=== PATIENT | female | born 1980 | race Caucasian/White ===

== ENCOUNTER 2017-10-15 19:04 | Emergency (ER) | payer OTHER ==
[2017-10-15 19:09] VITALS: BP 127/86; PULSE 68; TEMP 98; BMI 25.0
--- NOTE | 2017-10-15 19:09 | PDOC ---
Rapid Medical Evaluation Time Seen by Provider: 10/15/17 19:07 Medical Evaluation: Allergies Allergy/AdvReac Type Severity Reaction Status Date / Time No Known Allergies Allergy Verified 03/31/14 13:40 10/15/17 19:07 Pt c/o: fell and landed on rt knee Pt on brief exam: ecchymosis and edema t right patella Pt ordered for: none ? contusion Pt to proceed to the ED Discharge Disposition - Diagnosis Knee pain, right - Referrals - Patient Instructions - Post Discharge Activity
--- NOTE | 2017-10-15 20:21 | PDOC ---
History of Present Illness - General Chief Complaint: Injury Stated Complaint: RT KNEE INJURY Time Seen by Provider: 10/15/17 19:07 - History of Present Illness Initial Comments: 37-year-old female without comorbidities presents for evaluation of right knee pain after a fall today. She had a mechanical fall where she lost her balance and fell directly onto the anterior aspect of her right knee. She planes of localized pain no other associated symptoms. 10/15/17 20:18 Past History - Past Medical History Allergies/Adverse Reactions: Allergies Allergy/AdvReac Type Severity Reaction Status Date / Time No Known Allergies Allergy Verified 10/15/17 19:09 Home Medications: Ambulatory Orders NK [No Known Home Medication] 10/15/17 COPD: No - Suicide/Smoking/Psychosocial Hx Smoking History: Never smoked Review of Systems - Review of Systems Musculoskeletal: Yes: Joint Pain All Other Systems: Reviewed and Negative *Physical Exam - Vital Signs Last Vital Signs Temp Pulse Resp BP Pulse Ox 98 F 68 18 127/86 100 10/15/17 19:05 10/15/17 19:05 10/15/17 19:05 10/15/17 19:05 10/15/17 19:05 - Physical Exam Comments: There is a superficial abrasion on the anterior aspect of the right knee. There is mild surrounding purplish ecchymosis. Mild swelling. There is no appreciable intra-articular effusion. Extensor mechanism is intact, range of motion 0 to the 100 with pain and discomfort at the anterior aspect in the at terminal flexion. There is no evidence of instability or patella femoral apprehension. Negative straight leg raise test normal hip and ankle range of motion thighs and calves are soft and nontender she is neurovascularly intact. Left knee examination is normal. 10/15/17 20:18 ED Treatment Course - RADIOLOGY Radiology Studies Ordered: Category Date Time Status KNEE 3 POS-RIGHT [RAD] Stat Radiology 10/15/17 20:05 Ordered Medical Decision Making - Medical Decision Making Normal x-ray of the left knee is a contusion weight-bear as tolerated with orthopedic surgery for further evaluation and treatment options 10/15/17 20:19 *DC/Admit/Observation/Transfer Diagnosis at time of Disposition: Knee pain, right, Contusion of knee, right - Discharge Dispostion Disposition: HOME Condition at time of disposition: Stable Decision to Admit order: No - Referrals Referrals: Maricarmen Dial [Primary Care Provider] - Kevyn Thompson MD [Staff Physician] - - Patient Instructions Printed Discharge Instructions: Contusion Additional Instructions: Turned to the emergency room should symptoms worsen or go unresolved. Follow-up with orthopedic surgery in 2-3 days for further evaluation and treatment options. He may take Tylenol and Motrin as directed for pain and swelling. I should knee for 20 minutes at a time 5-6 times a day. Keep the knee elevated. As tolerated with use of crutches. If you can walk normally you do not require crutches - Post Discharge Activity
== END 2017-10-15 21:02 | disposition home or self-care (01) ==
LOC: JERFT 19:04
DX: S80.01XA Contusion of right knee, initial encounter (principal); W18.39XA Other fall on same level, initial encounter; Y93.89 Activity, other specified; Y92.89 Other specified places as the place of occurrence of the external cause; Y99.8 Other external cause status
CPT/HCPCS: 73562-TC-RT-FY; 99281-25

== ENCOUNTER 2017-11-27 22:10 | Emergency (ER) | payer OTHER ==
[2017-11-27 22:21] VITALS: BP 141/82; PULSE 88; TEMP 98.2; BMI 24.1
--- NOTE | 2017-11-27 23:30 | PDOC ---
Attending Attestation - HPI HPI: 11/27/17 23:53 The patient is a 37 year old male, with no significant past medical history, who presents to the emergency department with headache since this morning and chest pain for about an hour today. She reports her headache is posterior and radiates to neck which has been similar in character to other headaches, however , more severe today with gradual onset. She reports her chest pain is parasternal with sudden onset while resting at home. She states she did not take any OTC medication for her symptoms. The patient denies shortness of breath and dizziness. The patient denies fever, chills, nausea, vomit, diarrhea and constipation. The patient denies dysuria, frequency, urgency and hematuria. Allergies: NKDA Past surgical history: none reported Family history: 3 uncles cardiac demise (youngest at age 47) - Physicial Exam PE: 11/27/17 23:54 GENERAL: Awake, alert, and fully oriented, in no acute distress HEAD: No signs of trauma EYES: PERRLA, EOMI, sclera anicteric, conjunctiva clear ENT: Auricles normal inspection, hearing grossly normal, nares patent, oropharynx clear without exudates. Moist mucosa NECK: Normal ROM, supple, no lymphadenopathy, JVD, or masses LUNGS: Breath sounds equal, clear to auscultation bilaterally. No wheezes, and no crackles HEART: Regular rate and rhythm, normal S1 and S2, no murmurs, rubs or gallops ABDOMEN: Soft, nontender, normoactive bowel sounds. No guarding, no rebound. No masses EXTREMITIES: Normal range of motion, no edema. No clubbing or cyanosis. No cords, erythema, or tenderness NEUROLOGICAL: Cranial nerves II through XII grossly intact. Normal speech, normal gait SKIN: Warm, Dry, normal turgor, no rashes or lesions noted. - Medical Decision Making 11/27/17 23:54 Documentation prepared by Maria Kyle, acting as medical assisting instructor for Gerri Wright MD
[2017-11-28] MEDS ORDERED: IBUPROFEN 400 MG TABLET (FP) PO ONE ×2 (01:12→03:36)
[2017-11-28] MEDS ORDERED: ACETAMINOPHEN 325 MG TABLET (FP) PO ONE (01:13)
[2017-11-28] MEDS ORDERED: ACETAMINOPHEN 325 MG TABLET (FP) ONE (01:34)
[2017-11-28 01:42] LABS: BASO % 0.3 % (0-2.0); EOS % 1.9 % (0-4.5); HEMATOCRIT 40.6 % (32.4-45.2); HEMOGLOBIN 14.2 GM/dL (10.7-15.3); LYMPH % 27.8 % (8-40); MCH 31.8 pg (25.7-33.7); MEAN CELL VOLUME 90.9 fl (80-96); MEAN PLT VOLUME 8.8 fl (7.5-11.1); MONO % 7.3 % (3.8-10.2); NEUT % 62.7 % (42.8-82.8); PLATELET COUNT 251 K/MM3 (134-434); RBC 4.46 M/mm3 (3.60-5.2); RDW 12.5 % (11.6-15.6); WHITE BLOOD COUNT 9.7 K/mm3 (4.0-10.0)
--- NOTE | 2017-11-28 02:15 | PDOC ---
History of Present Illness - General Chief Complaint: Pain Stated Complaint: CHEST PAIN Time Seen by Provider: 11/27/17 23:07 History Source: Patient Exam Limitations: No Limitations - History of Present Illness Initial Comments: 11/28/17 02:03 37 yo female no significant pmh presents to the ED with a headache that started this morning and CP that started 1 hour before arrival to the ED. Pt states she has had a hx of minor ERWIN that are of similar quality but the intensity has gradually worsened throughout the day but denies using tylenol or motrin which has helped in the past. The CP started while relaxing at home, non exertional and is located parasternally at the level of the 5th rib without radiation to the arm or back and described as sharp. Pain is made worse with palpation to affected area. Pt denies hx of smoking but states 3 uncles have passed due to heart conditions, youngest was in his 40s. Pt went to [facility] ER 3 times within the last year for "palpitations " Denies SOB, abdominal pain, F/C/N/V. Past History - Past Medical History Allergies/Adverse Reactions: Allergies Allergy/AdvReac Type Severity Reaction Status Date / Time No Known Allergies Allergy Verified 11/27/17 22:21 Home Medications: Ambulatory Orders NK [No Known Home Medication] 10/15/17 COPD: No - Suicide/Smoking/Psychosocial Hx Smoking History: Never smoked *Physical Exam - Vital Signs Last Vital Signs Temp Pulse Resp BP Pulse Ox 98.2 F 88 18 141/82 100 11/27/17 22:16 11/27/17 22:16 11/27/17 22:16 11/27/17 22:16 11/27/17 22:16 - Physical Exam General Appearance: Yes: Nourished, Appropriately Dressed. No: Apparent Distress HEENT: positive: EOMI Respiratory/Chest: positive: Chest Tender, Lungs Clear, Normal Breath Sounds. negative: Crackles, Stridor, Wheezing Cardiovascular: positive: Regular Rhythm, Regular Rate, S1, S2. negative: Edema , JVD, Murmur Vascular Pulses: Dorsalis-Pedis (R): 4+, Doralis-Pedis (L): 4+ Gastrointestinal/Abdominal: positive: Normal Bowel Sounds, Flat, Soft. negative : Pulsatile Mass, Guarding, Rebound, Tenderness Extremity: positive: Normal Capillary Refill Integumentary: positive: Normal Color, Dry, Warm Neurologic: positive: Fully Oriented, Alert, Normal Mood/Affect ED Treatment Course - LABORATORY CBC & Chemistry Diagram: 11/28/17 00:50 11/28/17 00:50 - ADDITIONAL ORDERS Additional order review: Laboratory Results 11/28/17 00:50 Urine HCG, Qual Negative 11/28/17 00:50 RBC 4.46 MCV 90.9 MCHC 35.0 RDW 12.5 MPV 8.8 Neutrophils % 62.7 Lymphocytes % 27.8 Monocytes % 7.3 Eosinophils % 1.9 Basophils % 0.3 - RADIOLOGY Radiology Studies Ordered: Category Date Time Status CHEST PA & LAT [RAD] Stat Radiology 11/28/17 01:44 Ordered - Medications Given in the ED: ED Medications Discontinued Medications Generic Name Dose Route Start Last Admin Trade Name Ronnie PRN Reason Stop Dose Admin Acetaminophen 650 mg 11/28/17 01:13 11/28/17 01:45 Tylenol - PO 11/28/17 01:14 650 mg ONCE ONE Administration *DC/Admit/Observation/Transfer Diagnosis at time of Disposition: Chest pain Qualifiers: Chest pain type: unspecified Qualified Code(s): R07.9 - Chest pain, unspecified - Discharge Dispostion Disposition: HOME Condition at time of disposition: Stable Decision to Admit order: No - Referrals Referrals: Maricarmen Dial [Primary Care Provider] - - Patient Instructions Printed Discharge Instructions: DI for Chest Pain Additional Instructions: Please return to the Emergency Room for new or worsening including but not limited to: worsening chest pain, nausea, vomiting, one sided weakness on your body. Please follow up with your Family Doctor within the next 2 days. Take over the counter tylenol for the pain and headache as needed Thank you. - Post Discharge Activity Forms/Work/School Notes: Back to Work
[2017-11-28 02:26] LABS: ALBUMIN 3.9 g/dl (3.4-5.0); ALK PHOS 62 U/L (45-117); ANION GAP 6 MMOL/L (8-16); BILIRUBIN,TOTAL 0.5 mg/dL (0.2-1); BLOOD UREA NITROGEN 10 mg/dL (7-18); CALCIUM 8.9 mg/dL (8.5-10.1); CHLORIDE 102 mmol/L (98-107); CO2 29 mmol/L (21-32); CREATININE 0.6 mg/dL (0.55-1.3); GLUCOSE,RANDOM 91 mg/dL (74-106); SGOT/AST 11 U/L (15-37); SGPT/ALT 15 U/L (13-61); SODIUM 137 mmol/L (136-145); TOT PROT 7.4 g/dl (6.4-8.2)
--- NOTE | 2017-11-28 09:19 | EKG ---
Test Reason : Blood Pressure : / mmHG Vent. Rate : 071 BPM Atrial Rate : 071 BPM P-R Int : 164 ms QRS Dur : 090 ms QT Int : 398 ms P-R-T Axes : 046 041 039 degrees QTc Int : 432 ms NORMAL SINUS RHYTHM LOW VOLTAGE QRS INCOMPLETE RBBB NO PREVIOUS ECGS AVAILABLE Confirmed by NIURKA FIELDS MD ([id number]) on 11/28/2017 9:18:43 AM Referred By: Confirmed By:NIURKA FIELDS MD
== END 2017-11-28 03:38 | disposition home or self-care (01) ==
LOC: JER 22:10
DX: R07.9 Chest pain, unspecified (principal)
CPT/HCPCS: 36415; 71046-TC-FY; 80053; 82550; 84484; 84703; 85025; 93005; 93010; 99282-25